=== PATIENT | female | born 1965 | race Caucasian/White ===

== ENCOUNTER → 2017-12-10 | Outpatient (CLI) | payer OTHER ==
[~2017-12-10] MED LIST: DICL25ER PO; ESTR2 PO; Effexor Xr150 MG PO; GABA600 PO; HYDHCL25 PO; LORZONE375 MG PO; METCAR500 PO; OMEPRAZOLE MAGN20 MG PO
== END | disposition home or self-care (01) ==
LOC: LAB SHORT 18:32
DX: J02.9 Acute pharyngitis, unspecified (principal)
CPT/HCPCS: 87070; 87077; 87185

== ENCOUNTER 2018-02-03 06:54 | Day surgery (SDC) | payer OTHER ==
[~2018-02-03] VITALS: Ht 162.6 cm; Wt 96.2 kg
== END 2018-02-03 22:37 | disposition home or self-care (01) ==
LOC: ORSCMMR 06:54
PROVIDERS: Internal Medicine Gastroenterology
PROC: 0DB58ZX Excision of Esophagus, Via Natural or Artificial Opening Endoscopic, Diagnostic (ICD-10-PCS; principal; 2018-02-03 08:00)
PROC: 0DB68ZX Excision of Stomach, Via Natural or Artificial Opening Endoscopic, Diagnostic (ICD-10-PCS; principal; 2018-02-03 08:00)
PROC: 0DB48ZX Excision of Esophagogastric Junction, Via Natural or Artificial Opening Endoscopic, Diagnostic (ICD-10-PCS; principal; 2018-02-03 08:00)
PROC: 0DJD8ZZ Inspection of Lower Intestinal Tract, Via Natural or Artificial Opening Endoscopic (ICD-10-PCS; principal; 2018-02-03 08:00)
DX: K21.9 Gastro-esophageal reflux disease without esophagitis (principal); K44.9 Diaphragmatic hernia without obstruction or gangrene; Z12.11 Encounter for screening for malignant neoplasm of colon; F32.9 Major depressive disorder, single episode, unspecified; K63.89 Other specified diseases of intestine; Z79.899 Other long term (current) drug therapy
CPT/HCPCS: 43239; G0121; 88305; 88342; J7120